=== PATIENT | female | born 1940 | race Asian ===

== ENCOUNTER → 2020-06-20 15:03 | Outpatient (BNVA) | payer MEDICARE, SELFPAY | PROVIDERS: Family Provider Nurse Practitioner Family; PCP Nurse Practitioner Family; Visit Provider Nurse Practitioner Family | DX: E11.65 Type 2 diabetes mellitus with hyperglycemia (principal); Z72.0 Tobacco use; E11.69 Type 2 diabetes mellitus with other specified complication; R03.0 Elevated blood-pressure reading, without diagnosis of hypertension; G54.6 Phantom limb syndrome with pain | CPT/HCPCS: 80053; 80061; 83036; 85025 ==

== ENCOUNTER → 2020-08-11 17:27 | Outpatient (BNVA) | payer MEDICARE, SELFPAY | PROVIDERS: Family Provider Nurse Practitioner Family; PCP Nurse Practitioner Family; Visit Provider Nurse Practitioner Family | DX: R23.4 Changes in skin texture (principal); L97.509 Non-pressure chronic ulcer of other part of unspecified foot with unspecified severity; E11.65 Type 2 diabetes mellitus with hyperglycemia; I10 Essential (primary) hypertension; M85.871 Other specified disorders of bone density and structure, right ankle and foot | CPT/HCPCS: 73620 ==

== ENCOUNTER 2020-09-01 14:24 | Emergency (ER) | payer MEDICARE, SELFPAY ==
[2020-09-01 14:43] VITALS: BP 112/64; PULSE 89; RESP 18; O2SAT 96; BMI 18.8
--- NOTE | 2020-09-01 14:44 | ED_ITS ---
HPI - Extremity Problem General: Chief complaint: Wound/Laceration Stated complaint: right foot pain/bleeding Time Seen by Provider: 09/01/20 14:28 Source: patient Mode of arrival: ambulatory Limitations: no limitations History of Present Illness: HPI Narrative: Isa is a 80 year old diabetic who presents with a complaint of right small toe wound since Feb 2020. She was supposed to have an appointment with wound care last week but missed this appointment due to car trouble. They also missed another appointment before this due to being too early in the day. They see Dr. Floyd at [facility]. She is unsure of her last tetanus shot. Associated symptoms: Deny chest pain or fever(s) Review of Systems Const: Denies: fever(s) or chills Card: Denies: chest pain Resp: Denies: dyspnea or productive cough GI: Denies: abdominal pain, nausea or vomiting Musc: Denies: neck pain, joint pain or joint redness Skin/Breast: Reports: non-healing lesions Neuro: Denies: headache(s) or numbness in extremities PFSH ED PFSH: Social History Smoking and tobacco status: current every day smoker Alcohol intake: current Alcohol intake frequency: holidays/special occasions only Female Reproductive History: Spontaneous abortions: No Physical Exam Const: COMMON NORMALS: no acute distress GENERAL APPEARANCE: cooperative HENMT: COMMON NORMALS: normocephalic HEAD & SCALP: normal to inspection and normocephalic Eye: COMMON NORMALS: Equal, round and reactive pupils present and EOMs intact bilaterally PUPIL: Yes Equal, round and reactive pupils present Neck/C-Spine: COMMON NORMALS: full ROM Chest: COMMONS NORMALS: normal inspection of the chest CHEST: Yes Symmetrical chest wall rise Resp: COMMON NORMALS: normal respiratory effort EFFORT & INSPECTION: Yes able to speak in complete sentences and Yes symmetric chest movement Cardio: COMMON NORMALS: regular rate RATE: regular rate Extremity: RIGHT LOWER EXTREMITY: Yes foot & digits (Purple wound to lateral side of 5th digit) OTHER: Left BKA noted, healed Course Vital Signs: Vital signs: Vital Signs Pulse Rate 92 09/01/20 15:20 Respiratory Rate 14 09/01/20 15:20 Blood Pressure 114/68 09/01/20 15:20 Pulse Oximetry 96 09/01/20 15:20 MDM - Extremity (Nontraumatic) MDM Narrative: Medical decision making narrative: We will get x-ray to look for any bony erosion or subcutaneous air. Patient given her first dose of doxycycline here in the ER. We will discharge her home on antibiotics and mupirocin ointment. Advised her she has to follow-up with wound care on Tuesday and if she does not make this appointment they will no longer be able to see her. If they are not able to get this infection cleared up she may lose her toe or her foot given her history of diabetes and nonhealing wounds. Advised family to discuss diabetic shoe prescription with her PCP in follow-up. Imaging Data^: right foot: Attestation: I personally reviewed and interpreted this imaging study as follows: My impression: No evidence of bony erosion or subcutaneous air. Discharge Plan Discharge Patient Disposition: Home Clinical Impression: Non-healing wound Diabetes mellitus Qualifiers: Diabetes mellitus type: type 2 Diabetes mellitus superintendent container terminal insulin use: unspecified superintendent container terminal insulin use status Condition: Stable Prescriptions: New doxycycline monohydrate 100 mg capsule 100 mg PO BID 7 Days Qty: 14 RF: 0 mupirocin 2 % ointment 1 applic topical TID Qty: 15 RF: 0 No Action (DME) blood-glucose meter [Accu-Chek Guide Glucose Meter] Misc See Rx Instructions .ROUTE .MEDSUPPLY Qty: 1 RF: 0 (DME) Accutrend Glucose test strips Strip See Rx Instructions .ROUTE .MEDSUPPLY Qty: 50 RF: 0 (DME) lancets [1st Tier Unilet ComforTouch] 30 gauge misc See Rx Instructions .ROUTE .MEDSUPPLY Qty: 100 RF: 0 (DME) blood pressure monitor [Blood Pressure Kit] Kit See Rx Instructions .ROUTE .MEDSUPPLY Qty: 1 RF: 0 glipizide 10 mg tablet extended release 24hr 10 mg PO DAILY Qty: 30 RF: 0 gabapentin 300 mg capsule 300 mg PO BID Qty: 60 RF: 0 lisinopril-hydrochlorothiazide 10-12.5 mg tablet 1 tab PO DAILY Qty: 30 RF: 0 Discharge Orders: Discharge ED (Routine); Ordered 09/01/20 Ordered By: Veronica Melendrez Referrals: Franklin Zelaya FNP [Primary Care Provider] - Axel Rosas MD [Physician] - 09/08/20 2:30 pm Discharge Diet: Usual diet Discharge Activity: Resume usual activity Patient Instructions: Opioid Safety Activity Restrictions/Additional Instructions: Go to wound care September 08 at 2:15 PM. Arrive 10 minutes early. You are going to see Dr. Rosas. Take all of your antibiotic as directed. Wash area with running water and soap 3 times a day and apply a thin layer of antibiotic ointment. Cover with sterile bandage. Do not soak in water, running water is fine. Follow-up with your family doctor in 3 to 5 days. Return if any problems. Coding Level of Care Code ED Lining Machine Operator for Chg Fwd Exam Comprehensive
--- NOTE | 2020-09-01 14:50 | XRR_ITS ---
PROCEDURE INFORMATION: Exam: XR Right Foot Exam date and time: 09/01/2020 3:14 PM Age: 80 years old Clinical indication: Condition or disease; Other: 5th toe wound TECHNIQUE: Imaging protocol: XR Right foot. Views: 3 or more views. COMPARISON: CR XR foot RT 2V [id number] 08/11/2020 5:39 PM FINDINGS: Bones/joints: Normal. Soft tissues: Normal. XR/XR foot RT min 3V* [id number] IMPRESSION: No acute findings.
--- NOTE | 2020-09-01 15:08 | DCPLANNER ---
solid waste manager was asked to schedule a follow up appointment for patient with Wound Care. solid waste manager called the Wound Care clinic, spoke with Naina, gave clinic patients information. A follow up appointment was scheduled for Friday, September 08 at 2:[address] Rosas. solid waste manager informed ER physician of the schedule appointment and the importance of patient attending this appointment. solid waste manager informed physician that if patient no shows the appointment that she will not be seen in the Wound Care clinic. solid waste manager and physician gave patient the appointment information and stressed the importance of her attending the appointment.
[2020-09-01] MEDS: tetanus-dipt-pertussis 0.5 mL SDV IM (15:17)
[2020-09-01 15:20] VITALS: BP 114/68; PULSE 92; RESP 14; O2SAT 96
[2020-09-01] MEDS: doxycycline 100 mg Tablet PO (15:46)
[2020-09-01 15:51] VITALS: BP 114/68
--- NOTE | 2020-09-12 13:56 | DCPLANNER ---
Patient had a follow up appointment scheduled for 09.08.20 with Wound Care - patient did attend appointment.
== END 2020-09-01 15:52 | disposition home or self-care (01) ==
PROVIDERS: Emergency Provider Physician Assistant; PCP Nurse Practitioner Family
DX: S91.104A Unspecified open wound of right lesser toe(s) without damage to nail, initial encounter (principal); X58.XXXA Exposure to other specified factors, initial encounter; E11.9 Type 2 diabetes mellitus without complications; Z79.84 Long term (current) use of oral hypoglycemic drugs; F17.210 Nicotine dependence, cigarettes, uncomplicated; Z23 Encounter for immunization
CPT/HCPCS: 73630; 90471; 90715; 99283

== ENCOUNTER 2020-09-11 13:55 | Outpatient (CLI) | payer MEDICARE, SELFPAY | END 2020-09-11 13:56 | disposition home or self-care (01) | LOC: WOUND 13:55 | PROVIDERS: PCP Nurse Practitioner Family; Visit Provider Thoracic Surgery (Cardiothoracic Vascular Surgery) | DX: E11.621 Type 2 diabetes mellitus with foot ulcer (principal); L97.512 Non-pressure chronic ulcer of other part of right foot with fat layer exposed; R60.0 Localized edema | CPT/HCPCS: 73630; G0463 ==

== ENCOUNTER 2020-09-11 17:38 | Outpatient (CLI) | payer MEDICARE, SELFPAY ==
--- NOTE | 2020-09-11 | XR_ITS ---
WS: [id number] RIGHT FOOT: 3 VIEW(S) TECHNIQUE: AP, oblique and lateral. HISTORY: DM WITH FOOT ULCER COMPARISON: 08/11/2020 and 09/01/2020 Severe osteopenia. Indeterminate for fracture involving the medial aspect middle phalanx fifth toe. T here is mild soft tissue edema. No air in the soft tissues. No osteomyelitis. Normal tarsal/metatarsal alignment. Mild diffuse soft tissue edema around the foot. XR/XR foot RT min 3V* [id number] IMPRESSION: 1. Mild diffuse soft tissue edema. 2. Indeterminate for nondisplaced fracture involving the middle phalanx of the fifth toe.
== END 2020-09-11 17:39 | disposition home or self-care (01) ==
PROVIDERS: PCP Family Medicine; Visit Provider Thoracic Surgery (Cardiothoracic Vascular Surgery)
DX: E11.621 Type 2 diabetes mellitus with foot ulcer (principal); R60.0 Localized edema
CPT/HCPCS: 73630

== ENCOUNTER 2020-09-17 14:06 | Outpatient (CLI) | payer MEDICARE, SELFPAY | END 2020-09-17 14:07 | disposition home or self-care (01) | LOC: WOUND 14:07 | PROVIDERS: PCP Family Medicine; Visit Provider Thoracic Surgery (Cardiothoracic Vascular Surgery) | DX: E11.621 Type 2 diabetes mellitus with foot ulcer (principal); L97.512 Non-pressure chronic ulcer of other part of right foot with fat layer exposed | CPT/HCPCS: G0463 ==

== ENCOUNTER 2020-09-22 14:09 | Outpatient (CLI) | payer MEDICARE, SELFPAY | END 2020-09-22 14:10 | disposition home or self-care (01) | LOC: WOUND 14:10 | PROVIDERS: PCP Family Medicine; Visit Provider Thoracic Surgery (Cardiothoracic Vascular Surgery) | DX: E11.621 Type 2 diabetes mellitus with foot ulcer (principal); L97.512 Non-pressure chronic ulcer of other part of right foot with fat layer exposed | CPT/HCPCS: 11042 ==

== ENCOUNTER 2020-09-29 14:41 | Outpatient (CLI) | payer MEDICARE, SELFPAY ==
--- NOTE | 2020-09-29 14:52 | CTR_ITS ---
PROCEDURE INFORMATION: Exam: CTA Angiogram of the Abdominal Aorta and Bilateral Lower Extremities (Run-off) With IV Contrast Exam date and time: 09/29/2020 2:52 PM Age: 80 years old Clinical indication: Other: Diabetic ulcer on RT foot; Prior surgery; Surgery type: Left hip, left lower leg amputation; Additional info: Dm w/foot ulcer TECHNIQUE: Imaging protocol: CT angiogram of the abdominal aorta, pelvis and bilateral lower extremities with IV iodinated contrast. 3D rendering (Not supervised by radiologist): MIP and/or 3D reconstructed images were created by the technologist. Radiation optimization: All CT scans at this facility use at least one of these dose optimization techniques: automated exposure control; mA and/or kV adjustment per patient size (includes targeted exams where dose is matched to clinical indication); or iterative reconstruction. Contrast material: VISI 320; Contrast volume: 95 ml; Contrast route: INTRAVENOUS (IV); COMPARISON: CR XR foot RT min 3V* [id number] 09/01/2020 3:02 PM RADIATION DOSE METRICS: Total DLP (mGy-cm): 1004.78 FINDINGS: Aorta: Focal calcified and noncalcified plaque in the distal thoracic aorta. Focal noncalcified plaque in the proximal abdominal aorta with diffuse scattered arterial calcifications. No dissection or aneurysm. Celiac trunk and mesenteric arteries: Calcified plaque in the mid superior mesenteric artery without significant stenosis. No stenosis at the origin of the celiac or superior mesenteric arteries. Renal arteries: Calcified plaque in the proximal left renal artery mild stenosis. No stenosis in the right renal artery. Right iliac arteries: Calcified plaque in the right common and external iliac arteries. Mild stenosis in the distal right external iliac artery. Right femoral/popliteal arteries: Occlusion of the right superficial femoral artery at its origin. There is some reconstituted flow in the mid and distal artery with multifocal severe stenosis. Severe stenosis in the proximal right deep femoral artery with patent muscular branches collateralized flow to the distal superficial femoral artery. Calcified plaque with severe stenosis in the right popliteal artery. Right infrapopliteal arteries: The multifocal plaque and moderate disease in the right anterior tibial artery which is patent to the foot. The right tibioperoneal trunk is occluded. The right peroneal and posterior tibial arteries are occluded. Left iliac arteries: Calcified plaque in the left common iliac artery with mild proximal stenosis. Left femoral/popliteal arteries: Occlusion of the proximal left superficial femoral artery. Occlusion of the left popliteal artery. Severe stenosis in the proximal left deep femoral artery with patent muscular branches. Left infrapopliteal arteries: Occlusion of the left anterior tibial, posterior tibial, and peroneal arteries. Liver: No mass. Gallbladder and bile ducts: Unremarkable. No calcified stones. No ductal dilation. Pancreas: Unremarkable. No mass. No ductal dilation. Spleen: Normal. No splenomegaly. Adrenals: Normal. No mass. Kidneys and ureters: Normal. No mass. Stomach and bowel: Unremarkable. No obstruction. No mucosal thickening. Appendix: No evidence of appendicitis. Bladder: Unremarkable. No mass. Reproductive: Unremarkable as visualized. Intraperitoneal space: Unremarkable. No free air. No significant fluid collection. Lymph nodes: No lymphadenopathy. Bones/joints: Compression screws in the proximal left femur. Anterior wedge compression fracture of T12, likely chronic. Left below-knee amputation. Soft tissues: Unremarkable. CT/CT angio abd aorta runof [id number] IMPRESSION: 1. Occlusion of the right superficial femoral artery at its origin with reconstituted flow and severe disease in the distal artery. 2. Severe stenosis in the proximal right deep femoral artery. 3. Multifocal disease in a patent right anterior tibial artery with runoff to the foot. 4. Occlusion of the right posterior tibial and peroneal arteries. 5. Occlusion of the left superficial femoral, popliteal, and infrapopliteal arteries. 6. Severe stenosis in the proximal left deep femoral artery with patent muscular branches. 7. Left below-knee amputation. Radiation Dose CTDIVOL = (mGy): DLP = 1004.78 (mGy-cm)
[2020-09-29 15:55] LABS: Blood Urea Nitrogen 14 mg/dL (8-23)
[2020-09-29] MEDS: iodixanol 320 mg/mL 100mL Btl IV (16:10)
== END 2020-09-29 14:42 | disposition home or self-care (01) ==
PROVIDERS: PCP Family Medicine; Visit Provider Thoracic Surgery (Cardiothoracic Vascular Surgery)
DX: E11.621 Type 2 diabetes mellitus with foot ulcer (principal); Z89.512 Acquired absence of left leg below knee; I70.8 Atherosclerosis of other arteries
CPT/HCPCS: 36415; 75635; 82565; 84520

== ENCOUNTER 2020-11-13 17:19 | Emergency (ER) | payer MEDICARE, SELFPAY ==
--- NOTE | 2020-11-13 17:35 | XRR_ITS ---
PROCEDURE INFORMATION: Exam: XR Right Foot Exam date and time: 11/13/2020 5:35 PM Age: 80 years old Clinical indication: Foot; Right; Patient HX: Chronic fifth digit pain/infection no known injury; Additional info: 5th toe infection TECHNIQUE: Imaging protocol: XR Right foot. Views: 3 or more views. COMPARISON: CR XR foot RT min 3V* [id number] 09/11/2020 6:03 PM FINDINGS: Bones/joints: Bones are diffusely osteopenic. Joint alignment is normal. There is no fracture. There is multifocal ill-defined metaphyseal erosion of the distal portion of the proximal 5th phalanx visible on the oblique view. Soft tissues: There is soft tissue swelling in the 5th toe. XR/XR foot RT min 3V* [id number] IMPRESSION: Osteomyelitis involving the proximal phalanx of the 5th toe, new since 09/11/2020.
[2020-11-13 17:53] VITALS: BP 98/57; PULSE 108; RESP 18; TEMP 37.5; O2SAT 94; BMI 18.8
== END 2020-11-13 18:51 | disposition left against medical advice (07) ==
LOC: ER 17:23
DX: L08.9 Local infection of the skin and subcutaneous tissue, unspecified (principal); Z53.21 Procedure and treatment not carried out due to patient leaving prior to being seen by health care provider
CPT/HCPCS: 73630